=== PATIENT | female | born 1990 | race Caucasian/White ===

== ENCOUNTER 2023-03-17 17:37 | Emergency (ER) | payer MEDICAID, OTHER ==
[~2023-03-17] VITALS: Ht 175.3 cm; Wt 68.8 kg
[~2023-03-17 17:37] MED LIST: ENTOCORT EC OR; FERR325T OR; FLAG250T OR; LIALDA OR; POTA20TA OR
[2023-03-17] MEDS ORDERED: UNRESOLVED CLARIFICATION ENTRY XX STA (21:54)
[2023-03-17] MEDS ORDERED: NS 1,000 ML IV ONE ×2 (21:55→22:35)
[2023-03-17] MEDS ORDERED: KETOROLAC 30 MG/ML 1ML VIAL IV ONE (22:35)
[2023-03-17 22:46] LABS: BASO % 0.1 % (0.0-1.0); HEMATOCRIT 34.3 % (36.0-47.0); HEMOGLOBIN 10.6 g/dl (12.0-15.5); LYMPH # 1.5 10^3/uL (1.5-5.0); MEAN CORPUSCULAR HEMOGLOBIN 29.9 pg (27.0-33.0); MEAN CORPUSCULAR HGB CONC 30.9 g/dl (32.0-36.5); MEAN CORPUSCULAR VOLUME 96.6 fl (80.0-96.0); MONO # 0.5 10^3/uL (0.0-0.8); MONO % 3.3 % (2.0-8.0); NEUTROPHILS # 12.7 10^3/uL (1.5-8.5); NEUTROPHILS % 85.7 % (36.0-66.0); PLATELET COUNT, AUTOMATED 511 10^3/uL (150-450); RED BLOOD COUNT 3.55 10^6/uL (4.00-5.40); WHITE BLOOD COUNT 14.8 10^3/uL (4.0-10.0)
[2023-03-17 22:50] LABS: ALBUMIN 3.2 G/DL (3.2-5.2); ALKALINE PHOSPHATASE 80 U/L (46-116); ALT/SGPT 11 U/L (7.0-40); AST/SGOT < 8 U/L (<34); BILIRUBIN,TOTAL 0.4 MG/DL (0.3-1.2); BLOOD UREA NITROGEN 16 MG/DL (9-23); CALCIUM LEVEL 8.9 MG/DL (8.5-10.1); CARBON DIOXIDE LEVEL 27 MMOL/L (20-31); CHLORIDE LEVEL 103 MMOL/L (98-107); CREATININE FOR GFR 0.51 MG/DL (0.55-1.30); GLOMERULAR FILTRATION RATE > 60.0 (>60); GLUCOSE, FASTING 102 MG/DL (60-100); POTASSIUM SERUM 4.5 MMOL/L (3.5-5.1); SODIUM LEVEL 136 MMOL/L (136-145); TOTAL PROTEIN 7.5 G/DL (5.7-8.2)
[2023-03-17] MEDS ORDERED: metroNIDAZOLE 500 MG in IV 1 EA IV ONE (23:00)
[2023-03-17] MEDS ORDERED: CIPROFLOXACIN 400 MG in IV 1 EA IV ONE (23:00)
[2023-03-17] MEDS: GASTROGRAFIN SOLUTION 30ML PO SCH (23:40)
[2023-03-17] MEDS ORDERED: diphenhydrAMINE 50MG/ML VIAL IV STA (23:53)
[2023-03-17] MEDS ORDERED: PIPERACILLIN/TAZOBACTAM SOD 4.5 GM in D5W MINI-BAG PLUS 50 ML IV ONE (23:55)
[2023-03-18] MEDS: GASTROGRAFIN SOLUTION 30ML PO SCH (00:08)
[2023-03-18] MEDS ORDERED: ISOVUE-370 76% 100ML VIAL As Ordered ONE (00:54)
[2023-03-18] MEDS ORDERED: PIPERACILLIN/TAZOBACTAM SOD 3.375 GM in D5W MINI-BAG PLUS 50 ML IV ONE (05:30)
[2023-03-18] MEDS ORDERED: KETOROLAC 30 MG/ML 1ML VIAL IV ONE (05:55)
[2023-03-18] MEDS ORDERED: LR 1,000 ML IV SCH (07:45)
[2023-03-18 08:55] VITALS: BP 127/59; TEMP 98.4; O2SAT 100
== END 2023-03-18 09:06 | disposition short-term general hospital (02) ==
LOC: M ED 17:37
DX: K60.4 Rectal fistula (principal); K61.1 Rectal abscess; K51.90 Ulcerative colitis, unspecified, without complications; Z88.1 Allergy status to other antibiotic agents
CPT/HCPCS: 36415; 74177; 80053; 83605; 85025; 86140; 86850; 86900; 86901; 87040; 96361; 96374; 96375; 96376; 99285; J0744; J1200; J1885; J2543; Q9963; Q9967